=== PATIENT | female | born 1995 | race Asian ===

== ENCOUNTER 2017-08-03 20:44 | Emergency (ER) | payer OTHER ==
[~2017-08-03] VITALS: Ht 162.6 cm; Wt 87.1 kg
[2017-08-03 22:16] LABS: PLATELET COUNT 338 K/uL (152-353)
[2017-08-03 22:20] LABS: POTASSIUM 4.1 mmol/L (3.6-5.2); SODIUM 136 mmol/L (136-145)
[2017-08-03 22:56] VITALS: BP 132/72; TEMP 98.2
== END 2017-08-03 22:57 | disposition home or self-care (01) ==
LOC: ED 20:44
PROVIDERS: Specialist
DX: R10.13 Epigastric pain (principal); R94.5 Abnormal results of liver function studies
CPT/HCPCS: 80053; 82150; 83690; 85027; 99283

== ENCOUNTER 2017-10-11 14:17 | Emergency (ER) | payer BC, OTHER ==
[~2017-10-11] VITALS: Ht 162.6 cm; Wt 87.5 kg
[2017-10-11] MEDS ORDERED: HEARTBURN150 MG OR (14:38)
[2017-10-11] MEDS ORDERED: PROTONIX20 MG PO (14:38)
[2017-10-11 14:56] LABS: PLATELET COUNT 330 K/uL (152-353)
[2017-10-11 15:03] LABS: POTASSIUM 3.8 mmol/L (3.6-5.2)
[2017-10-11 16:00] VITALS: TEMP 97.7
[2017-10-11 18:00] VITALS: BP 108/58
== END 2017-10-11 18:11 | disposition home or self-care (01) ==
LOC: ED 14:17
PROVIDERS: Family Medicine
DX: R10.11 Right upper quadrant pain (principal); R74.8 Abnormal levels of other serum enzymes
CPT/HCPCS: 80053; 80074; 81000; 81025; 85027; 99284; J1170; J2405; Q9963

== ENCOUNTER 2018-08-17 12:49 | Emergency (ER) | payer OTHER ==
[~2018-08-17] VITALS: Ht 162.6 cm; Wt 98.9 kg
[~2018-08-17 12:49] MED LIST: HEARTBURN150 MG OR; PROTONIX20 MG PO
[2018-08-17 12:51] VITALS: TEMP 98
[2018-08-17 14:17] LABS: PLATELET COUNT 291 K/uL (152-353)
[2018-08-17 15:21] VITALS: BP 122/72
== END 2018-08-17 15:22 | disposition home or self-care (01) ==
LOC: ED 12:49
DX: N83.202 Unspecified ovarian cyst, left side (principal)
CPT/HCPCS: 36415; 81000; 84702; 85027; 99284

== ENCOUNTER 2020-06-02 21:42 | Emergency (ER) | payer OTHER ==
[~2020-06-02] VITALS: Ht 162.6 cm; Wt 90.7 kg
[2020-06-02 22:54] LABS: PLATELET COUNT 241 K/uL (152-353)
[2020-06-03 01:45] VITALS: BP 118/64; TEMP 99.6
== END 2020-06-03 01:40 | disposition home or self-care (01) ==
LOC: ED 21:42
PROVIDERS: Family Medicine
DX: J06.9 Acute upper respiratory infection, unspecified (principal); R50.9 Fever, unspecified
CPT/HCPCS: 36415; 80053; 81000; 82728; 85027; 85379; 87502; 87651; 99283

== ENCOUNTER 2023-01-18 11:37 | Emergency (ER) | payer OTHER ==
[~2023-01-18] VITALS: Ht 162.6 cm; Wt 108.9 kg
[2023-01-18 11:43] VITALS: TEMP 97.7
[2023-01-18 12:34] LABS: PLATELET COUNT 372 K/uL (152-353)
[2023-01-18 12:49] LABS: POTASSIUM 3.6 mmol/L (3.6-5.2); SODIUM 138 mmol/L (136-145)
[2023-01-18 14:12] VITALS: BP 124/83
== END 2023-01-18 14:12 | disposition home or self-care (01) ==
LOC: ED 11:37
PROVIDERS: Family Medicine
DX: M94.0 Chondrocostal junction syndrome [Tietze] (principal)
CPT/HCPCS: 80053; 84484; 85027; 93005; 96374; 99284; J1100

== ENCOUNTER 2023-09-23 21:48 | Emergency (ER) | payer OTHER ==
[~2023-09-23] VITALS: Ht 162.6 cm; Wt 113.4 kg
[2023-09-23 21:55] VITALS: TEMP 98.9
[2023-09-23 22:39] LABS: PLATELET COUNT 267 K/uL (152-353)
[2023-09-23 23:00] LABS: POTASSIUM 3.7 mmol/L (3.6-5.2)
[2023-09-24 00:05] VITALS: BP 110/65
== END 2023-09-24 00:05 | disposition home or self-care (01) ==
LOC: ED 21:48
PROVIDERS: Internal Medicine Endocrinology, Diabetes & Metabolism
DX: R10.9 Unspecified abdominal pain (principal); R11.0 Nausea; R19.7 Diarrhea, unspecified; K52.89 Other specified noninfective gastroenteritis and colitis
CPT/HCPCS: 36415; 80053; 81002; 81025; 83690; 85027; 99283